=== PATIENT | female | born 1995 | race Caucasian/White ===

== ENCOUNTER 2016-04-22 17:58 | Emergency (ER) | payer OTHER ==
[~2016-04-22] VITALS: Ht 160 cm; Wt 53.4 kg
[2016-04-22 18:01] VITALS: TEMP 36.7; Ht 160 cm; Wt 53.4 kg
[2016-04-22] MEDS ORDERED: KETOROLAC TROMETHAMINE 60 MG/2 ML VIAL IM STA (18:17)
--- NOTE | 2016-04-22 18:23 | EMERGENCY ROOM VISIT NOTE ---
History Report prepared by Nelson: Francis La Under the Supervision of: Dr. Petr Ferris D.O. First contact with patient: 18:05 Chief Complaint: SORETHROAT Stated Complaint: SEVERE PAIN RT HEAD/EAR,SORETHROAT History of Present Illness The patient is a 20 year old female who presents to the Emergency Room with complaints of a persistent sore throat that began three days prior to arrival. She is also currently complaining of persistent headaches, ear pain, and pain in the left side of her neck. The patient states that she believes she had the flu five days ago and was vomiting with fevers and chills. These symptoms have resolved, but the headaches and sore throat have persisted. The patient also notes some generalized global weakness over the past three days. She has not visited with any physicians for these symptoms until this visit to the emergency department. She still has her tonsils, and has no to other medical problems. Source of History: patient Onset: Three days MANAGER SOURCING Position: throat Quality: other (Sore throat) Timing: other (Persistent) Associated Symptoms: + headache, + weakness Note: Also notes pain in the ears. Review of Systems See HPI for pertinent positives & negatives. A total of 10 systems reviewed and were otherwise negative. Past Medical & Surgical Medical Problems: (1) Fall (2) No Known Active Medical Problems (3) Shoulder pain, left Family History Cancer Social History Smoking Status: Current Every Day Smoker Drug Use: none Marital Status: in relationship Housing Status: lives with significant other Occupation Status: employed Current/Historical Medications Scheduled Cephalexin Monohydrate (Keflex), 500 MG PO QID Scheduled PRN Ibuprofen Tab (Motrin), 600 MG PO TID PRN for Pain or Fever Allergies Coded Allergies: No Known Allergies (Unverified , 07/10/15) Physical Exam Vital Signs Date Time Temp Pulse Resp B/P Pulse Ox O2 Delivery O2 Flow Rate FiO2 04/22/16 18:01 36.7 96 18 116/72 97 Room Air Physical Exam GENERAL: Patient is awake, alert, and in no acute distress. Patient is resting comfortably and showing no signs of anxiety EYES: The conjunctivae are clear. The pupils are round and reactive. EARS, NOSE, MOUTH AND THROAT: The nose is without any evidence of any deformity. Mucous membranes are moist tongue is midline. TMs are clear bilaterally. NECK: There is right anterior cervical adenopathy to palpation, with tenderness over this area. Range of motion is intact. RESPIRATORY: Normal respiratory effort is noted there is no evidence of wheezing rhonchi or rales CARDIOVASCULAR: Regular rate and rhythm noted there no murmurs rubs or gallops normal S1 normal S2 GASTROINTESTINAL: The abdomen is soft. Bowel sounds are present in all quadrants. Abdomen is nontender MUSCULOSKELETAL/EXTREMITIES: There is no evidence of gross deformity full range of motion is noted in the hips and shoulders SKIN: There is no obvious evidence of any rash. There are no petechiae, pallor or cyanosis noted. NEUROLOGIC: Patient is awake alert and oriented x3 strength is symmetric patellar reflexes are 2+ bilaterally Medical Decision & Procedures ER Provider Diagnostic Interpretation: X-ray results as stated below per interpretation by me and the radiologist. TWO VIEW CHEST CLINICAL HISTORY: Right-sided neck pain. Pharyngitis. FINDINGS: PA and lateral chest radiographs are compared to study dated 05/25/2015. The cardiomediastinal silhouette is unremarkable. The lungs and pleural spaces are clear. There is no pneumothorax. The bony thorax appears intact. There is mild S-shaped thoracolumbar scoliosis. IMPRESSION: No active disease in the chest. Electronically signed by: Elver Almendarez M.D. 04/22/2016 7:23 PM Dictated Date/Time: 04/22/2016 7:22 PM SOFT TISSUES NECK 2 VIEWS CLINICAL HISTORY: Sore throat. Right-sided neck pain. FINDINGS: AP and lateral views of the soft tissues of the neck are obtained. No prior studies are available for comparison at the time of dictation. The soft tissues the neck are normal as visualized. Mild prominence of the tonsils and adenoids is likely normal for age. The airway is widely patent. The prevertebral/retropharyngeal soft tissues are within normal limits. No radiodense foreign body is seen. The epiglottic shadow is normal. The imaged cervical spine appears intact. The visualized lung apices appear clear. IMPRESSION: Unremarkable radiographic assessment of the soft tissues of the neck. Electronically signed by: Elver Almendarez M.D. 04/22/2016 7:25 PM Dictated Date/Time: 04/22/2016 7:23 PM Medications Administered Medications (Trade) Dose Ordered Sig/Rikki Route Start Time Stop Time Status Last Admin Dose Admin Ketorolac Tromethamine (Toradol Inj) 60 mg NOW STAT IM 04/22/16 18:17 04/22/16 18:18 DC 04/22/16 18:58 60 MG Cephalexin Monohydrate (Keflex Cap) 500 mg NOW ONCE PO 04/22/16 19:30 04/22/16 19:31 DC 04/22/16 20:22 500 MG Cephalexin Monohydrate (Keflex 500MG Home Pack) 1 homepack NOW ONCE PO 04/22/16 19:30 04/22/16 19:31 DC 04/22/16 20:21 1 HOMEPACK Oxycodone HCl (Roxicodone Immediate Rel 5MG Home Pack) 1 homepack UD ONCE PO 04/22/16 19:30 04/22/16 19:31 DC 04/22/16 20:21 1 HOMEPACK ED Course 1810: The patient was evaluated in room B2. A complete history and physical examination were performed. 1816: Ordered Toradol 60 mg IM. 1929: Ordered Oxycodone HCl 1 homepack PO, Cephalexin 1 homepack PO., Cephalexin 500 mg PO. 1937: Upon reevaluation, the patient is resting comfortably in bed. I discussed the results and treatment plan with her. She verbalized agreement of the treatment plan. The patient was discharged home. Medical Decision The patient's history was concerning for a sore throat. Differential diagnosis: Etiologies such as viral syndrome, tonsillitis, streptococcal pharyngitis, mononucleosis, peritonsillar abscess, retropharyngeal abscess, otitis, pneumonia , influenza, as well as others were entertained. The patient is a 20-year-old female who presented to the emergency department for an evaluation of ear pain neck pain and sore throat. Patient's physical exam was not consistent with a peritonsillar abscess. X-rays did not show any acute abnormality. The patient on physical exam appeared to have cervical adenitis. The patient was started on antibiotic and given pain medication in the emergency department. I discussed the patient's radiographic studies with her. She was encouraged to rest and avoid any strenuous activity. She was also encouraged to call her primary care physician to schedule follow-up. She was also encouraged to continue taking Motrin and Tylenol for pain and fever and return to the emergency department immediately if symptoms change worsen or the need arises. Impression Primary Impression: Cervical adenitis Additional Impression: Headache Scribe Attestation The scribe's documentation has been prepared under my direction and personally reviewed by me in its entirety. I confirm that the note above accurately reflects all work, treatment, procedures, and medical decision making performed by me. Departure Information Dispostion Home / Self-Care Prescriptions Cephalexin Monohydrate (KEFLEX) 500 Mg Cap 500 MG PO QID, #28 CAP Prov: Petr Ferris, DO 04/22/16 Referrals No Doctor, Assigned (PCP) Forms HOME CARE DOCUMENTATION FORM, IMPORTANT VISIT INFORMATION Patient Instructions My [facility] Additional Instructions Call your primary care physician in the morning to schedule a follow-up appointment. Rest and avoid any strenuous activity. Continue all medications as prescribed. Continue using Motrin and Tylenol as directed for pain. Return to the emergency department immediately if symptoms change worsen or the need arises. Problem Qualifiers Additional Impression: Headache Headache type: unspecified Headache chronicity pattern: unspecified pattern Intractability: not intractable Qualified Codes: R51 - Headache
[2016-04-22] MEDS ORDERED: IBUP-1427 PO (18:51)
--- NOTE | 2016-04-22 19:24 | DIAGNOSTIC IMAGING REPORT ---
TWO VIEW CHEST CLINICAL HISTORY: Right-sided neck pain. Pharyngitis. FINDINGS: PA and lateral chest radiographs are compared to study dated 05/25/2015. The cardiomediastinal silhouette is unremarkable. The lungs and pleural spaces are clear. There is no pneumothorax. The bony thorax appears intact. There is mild S-shaped thoracolumbar scoliosis. IMPRESSION: No active disease in the chest. Electronically signed by: Elver Almendarez M.D. 04/22/2016 7:23 PM Dictated Date/Time: 04/22/2016 7:22 PM
--- NOTE | 2016-04-22 19:26 | DIAGNOSTIC IMAGING REPORT ---
SOFT TISSUES NECK 2 VIEWS CLINICAL HISTORY: Sore throat. Right-sided neck pain. FINDINGS: AP and lateral views of the soft tissues of the neck are obtained. No prior studies are available for comparison at the time of dictation. The soft tissues the neck are normal as visualized. Mild prominence of the tonsils and adenoids is likely normal for age. The airway is widely patent. The prevertebral/retropharyngeal soft tissues are within normal limits. No radiodense foreign body is seen. The epiglottic shadow is normal. The imaged cervical spine appears intact. The visualized lung apices appear clear. IMPRESSION: Unremarkable radiographic assessment of the soft tissues of the neck. Electronically signed by: Elver Almendarez M.D. 04/22/2016 7:25 PM Dictated Date/Time: 04/22/2016 7:23 PM
[2016-04-22] MEDS ORDERED: OXYCODONE IR HOME PACK PO ONE (19:30)
[2016-04-22] MEDS ORDERED: CEPHALEXIN MONOHYDRATE 250 MG CAP PO ONE (19:30)
[2016-04-22] MEDS ORDERED: CEPHALEXIN 500MG HOME PACK 1 EA BTL PO ONE (19:30)
[2016-04-22] MEDS ORDERED: CEPH500C2 PO (19:31)
[2016-04-22 20:26] VITALS: BP 100/74; PULSE 80; O2SAT 99
== END 2016-04-22 20:29 | disposition home or self-care (01) ==
LOC: C.EDB 17:59
DX: R51 Headache (principal); I88.9 Nonspecific lymphadenitis, unspecified